=== PATIENT | female | born 1985 | race Caucasian/White ===

== ENCOUNTER 2018-09-28 12:05 | Emergency (ER) | payer OTHER ==
[~2018-09-28] VITALS: Ht 167.6 cm; Wt 77.3 kg
[~2018-09-28 12:05] MED LIST: NOCURR
[2018-09-28] MEDS ORDERED: DIPH25 PO (12:23)
[2018-09-28 14:04] VITALS: BP 128/75
[2018-09-28] MEDS: DiphenhydrAMINE HCL 25 MG CAPSULE PO ONE (14:10)
== END 2018-09-28 14:18 | disposition home or self-care (01) ==
LOC: EMS 12:06
DX: L50.9 Urticaria, unspecified (principal); L29.9 Pruritus, unspecified

== ENCOUNTER 2018-11-27 17:13 | Emergency (ER) | payer OTHER ==
[~2018-11-27] VITALS: Ht 167.6 cm; Wt 74.5 kg
[~2018-11-27 17:13] MED LIST changes: +DIPH25 PO; -NOCURR
[2018-11-27] MEDS ORDERED: HYDR-2924 PO (17:41)
[2018-11-27] MEDS ORDERED: ATOR40TA28 PO (17:41)
[2018-11-27] MEDS ORDERED: CARV12 PO (17:41)
[2018-11-27] MEDS ORDERED: FURO40 PO (17:41)
[2018-11-27] MEDS ORDERED: SODIUM CHLORIDE 0.9% 1,000 ML IV ONE (18:15)
[2018-11-27 18:22] LABS: BASOPHILS % (AUTO) 0.3 % (0.0-2.0); EOSINOPHILS % (AUTO) 0.6 % (1.0-6.0); HEMOGLOBIN 11.4 g/dL (12.0-16.0); LYMPHOCYTES # (AUTO) 2.2 K/uL (1.0-4.8); MEAN CORPUSCULAR HGB CONC 32.5 G/dL (31.0-37.0); MEAN CORPUSCULAR VOLUME 89 fL (80-100); MONOCYTES # (AUTO) 0.6 K/uL (0.1-1.0); MONOCYTES % (AUTO) 4.8 % (2.0-9.0); NEUTROPHILS # (AUTO) 8.8 K/uL (1.8-7.7); NEUTROPHILS % (AUTO) 75.3 % (40.0-70.0); PLATELET COUNT (AUTO) 283 K/uL (150-450); RED BLOOD CELL COUNT(AUTO) 3.91 MIL/uL (4.00-5.20); RED CELL DISTRIBUTION WIDTH 13.6 % (11.5-14.5)
[2018-11-27 18:33] LABS: ANION GAP 11 mmol/L (8-16); CALCIUM, TOTAL 9.5 mg/dL (8.8-10.5); CARBON DIOXIDE 26 mmol/L (22-29); CHLORIDE 103 mmol/L (98-107); CREATININE 0.77 mg/dL (0.60-1.30); GLOMERULAR FILTR. RATE CALC > 60 mL/min (>60); GLUCOSE,RANDOM 99 mg/dL (70-110); POTASSIUM 3.8 mmol/L (3.5-5.1); SODIUM SERUM 140 mmol/L (136-145); UREA NITROGEN, BLOOD 13 mg/dL (7-18)
[2018-11-27 19:00] LABS: HCG,QUANTITATIVE 1821 mIU/mL (0-6)
[2018-11-27 20:10] VITALS: BP 130/68
== END 2018-11-27 20:12 | disposition home or self-care (01) ==
LOC: EMS 17:14
DX: O03.9 Complete or unspecified spontaneous abortion without complication (principal); Z79.899 Other long term (current) drug therapy
CPT/HCPCS: 36415; 76801; 76817; 80048; 84702; 85025; 86901; 99285; J7030

== ENCOUNTER → 2020-09-28 | Emergency (ER) | payer OTHER ==
[~2020-09-28] VITALS: Ht 167.6 cm; Wt 81.8 kg
[~2020-09-28] MED LIST changes: +ATOR40TA28 PO; +CARV12 PO; -DIPH25 PO; +FURO40 PO; +HYDR-2924 PO
[2020-09-28 16:49] VITALS: BP 134/95
[2020-09-28 17:15] LABS: COVID AG,FIA SOURCE NASOPHARYNGEAL
== END | disposition home or self-care (01) ==
LOC: EMS 16:32
DX: U07.1 COVID-19 (principal); Z79.899 Other long term (current) drug therapy
CPT/HCPCS: 87426; 99283; C9803

== ENCOUNTER 2021-11-26 08:37 | Emergency (ER) | payer OTHER ==
[~2021-11-26] VITALS: Ht 167.6 cm; Wt 95.5 kg
[~2021-11-26 08:37] MED LIST changes: -HYDR-2924 PO; +HYDR50TA36 PO
[2021-11-26 09:28] LABS: BASOPHILS % (AUTO) 0.5 % (0.0-2.0); HEMATOCRIT 33.4 % (36-46); HEMOGLOBIN 11.2 g/dL (12.0-16.0); LYMPHOCYTES # (AUTO) 1.7 K/uL (1.0-4.8); LYMPHOCYTES % (AUTO) 15.4 % (22.0-44.0); MEAN CORPUSCULAR HEMOGLOBIN 28.7 pg (26.0-34.0); MEAN CORPUSCULAR HGB CONC 33.6 G/dL (31.0-37.0); MEAN CORPUSCULAR VOLUME 86 fL (80-100); MONOCYTES # (AUTO) 0.4 K/uL (0.1-1.0); MONOCYTES % (AUTO) 3.3 % (2.0-9.0); NEUTROPHILS # (AUTO) 8.8 K/uL (1.8-7.7); NEUTROPHILS % (AUTO) 79.8 % (40.0-70.0); PLATELET COUNT (AUTO) 307 K/uL (150-450); RED CELL DISTRIBUTION WIDTH 13.7 % (11.5-14.5)
[2021-11-26 09:37] LABS: ANION GAP 12 mmol/L (8-16); CARBON DIOXIDE 22 mmol/L (22-29); CHLORIDE 104 mmol/L (98-107); CREATININE 0.64 mg/dL (0.60-1.30); GLOMERULAR FILTR. RATE CALC > 60 mL/min (>60); GLUCOSE,RANDOM 114 mg/dL (70-110); POTASSIUM 3.8 mmol/L (3.5-5.1); SODIUM SERUM 138 mmol/L (136-145); UREA NITROGEN, BLOOD 6 mg/dL (7-18)
[2021-11-26 10:04] LABS: ALANINE AMINOTRANSFERASE 12 U/L (12-78); ALBUMIN 2.5 g/dL (3.4-5.0); ALKALINE PHOSPHATASE 110 U/L (46-116); ASPARTATE AMINOTRANSFERASE 11 U/L (15-37); BILIRUBIN,TOTAL 0.2 mg/dL (0.1-1.0); HCG,QUANTITATIVE 26830 mIU/mL (0-6); TOTAL PROTEIN, SERUM 7.1 g/dL (6.4-8.2)
[2021-11-26 10:25] VITALS: BP 127/65
== END 2021-11-26 10:45 | disposition home or self-care (01) ==
LOC: EMS 08:37
DX: O26.893 Other specified pregnancy related conditions, third trimester (principal); Z3A.30 30 weeks gestation of pregnancy; Z79.899 Other long term (current) drug therapy
CPT/HCPCS: 76805; 80053; 84702; 85025; 86901; 99284

== ENCOUNTER 2023-07-18 09:48 | Emergency (ER) | payer OTHER ==
[~2023-07-18] VITALS: Ht 167.6 cm; Wt 85.0 kg
[2023-07-18 09:55] VITALS: TEMP 98.3
[2023-07-18] MEDS ORDERED: IBUPROFEN 600 MG TABLET PO ONE (10:30)
[2023-07-18] MEDS ORDERED: DEXAMETHASONE SOD PHOS 4 MG/ML 5 ML VIAL IM ONE (10:30)
[2023-07-18] MEDS ORDERED: PENICILLIN G BENZATHINE LA 1,200,000 UNITS/2 ML SYRINGE IM ONE (11:00)
[2023-07-18] MEDS ORDERED: IBUP-1492 PO (11:30)
[2023-07-18 12:15] VITALS: BP 126/84; PULSE 90; RESP 16
== END 2023-07-18 12:15 | disposition home or self-care (01) ==
LOC: EMS 09:52
DX: J02.0 Streptococcal pharyngitis (principal); H92.02 Otalgia, left ear
CPT/HCPCS: 99284; 87430; 96372; J0561; J1100

== ENCOUNTER 2023-09-24 14:35 | Emergency (ER) | payer OTHER ==
[~2023-09-24] VITALS: Ht 167.6 cm; Wt 86.0 kg
[~2023-09-24 14:35] MED LIST changes: +IBUP-1492 PO
[2023-09-24 14:53] VITALS: TEMP 98.4
[2023-09-24] MEDS ORDERED: MECLIZINE HCL 25 MG TABLET PO ONE (15:15)
[2023-09-24] MEDS ORDERED: ACETAMINOPHEN 500 MG TABLET PO ONE (15:15)
[2023-09-24] MEDS ORDERED: SODIUM CHLORIDE 0.9% 1,000 ML IV ONE (15:15)
[2023-09-24] MEDS ORDERED: ONDANSETRON HCL 4 MG/2 ML VIAL IVP ONE (15:15)
[2023-09-24 15:34] LABS: BASOPHILS % (AUTO) 0.3 % (0.0-2.0); EOSINOPHILS % (AUTO) 0.5 % (1.0-6.0); HEMATOCRIT 35.2 % (36-46); HEMOGLOBIN 11.5 g/dL (12.0-16.0); LYMPHOCYTES # (AUTO) 1.6 K/uL (1.0-4.8); LYMPHOCYTES % (AUTO) 13.3 % (22.0-44.0); MEAN CORPUSCULAR HEMOGLOBIN 28.3 pg (26.0-34.0); MEAN CORPUSCULAR HGB CONC 32.8 G/dL (31.0-37.0); MEAN CORPUSCULAR VOLUME 86 fL (80-100); MONOCYTES # (AUTO) 0.7 K/uL (0.1-1.0); MONOCYTES % (AUTO) 5.8 % (2.0-9.0); NEUTROPHILS # (AUTO) 9.6 K/uL (1.8-7.7); NEUTROPHILS % (AUTO) 80.1 % (40.0-70.0); PLATELET COUNT (AUTO) 312 K/uL (150-450); RED BLOOD CELL COUNT(AUTO) 4.08 MIL/uL (4.00-5.20); RED CELL DISTRIBUTION WIDTH 14.5 % (11.5-14.5)
[2023-09-24 15:46] LABS: ANION GAP 11 mmol/L (8-16); CALCIUM, TOTAL 9.6 mg/dL (8.8-10.5); CARBON DIOXIDE 24 mmol/L (22-29); CHLORIDE 104 mmol/L (98-107); CREATININE 0.82 mg/dL (0.60-1.30); GLOMERULAR FILTR. RATE CALC > 60 mL/min (>60); GLUCOSE,RANDOM 128 mg/dL (70-110); POTASSIUM 3.8 mmol/L (3.5-5.1); SODIUM SERUM 139 mmol/L (136-145); UREA NITROGEN, BLOOD 7 mg/dL (7-18)
[2023-09-24 15:54] LABS: ALANINE AMINOTRANSFERASE 20 U/L (12-78); ALBUMIN 3.6 g/dL (3.4-5.0); ALKALINE PHOSPHATASE 100 U/L (46-116); ASPARTATE AMINOTRANSFERASE 13 U/L (15-37); BILIRUBIN,TOTAL 0.2 mg/dL (0.1-1.0); TOTAL PROTEIN, SERUM 8.4 g/dL (6.4-8.2)
[2023-09-24] MEDS ORDERED: MECL-134 PO (18:09)
[2023-09-24] MEDS ORDERED: ACET-66 PO (18:09)
[2023-09-24] MEDS ORDERED: ONDA-104 PO (18:09)
[2023-09-24 19:03] VITALS: BP 136/69; PULSE 72; RESP 16
== END 2023-09-24 19:03 | disposition home or self-care (01) ==
LOC: EMS 14:39
DX: R42 Dizziness and giddiness (principal); R55 Syncope and collapse
CPT/HCPCS: 99284; 96374; 96361; 80053; 84703; 85025; 36415; 93005; J2405; J7030

== ENCOUNTER 2024-02-15 10:32 | Emergency (ER) | payer OTHER ==
[~2024-02-15] VITALS: Ht 167.6 cm; Wt 81.8 kg
[~2024-02-15 10:32] MED LIST changes: +ACET-66 PO; +MECL-134 PO; +ONDA-104 PO
[2024-02-15 11:21] LABS: BASOPHILS % (AUTO) 0.6 % (0.0-2.0); EOSINOPHILS % (AUTO) 1.1 % (1.0-6.0); HEMATOCRIT 35.5 % (36-46); HEMOGLOBIN 11.8 g/dL (12.0-16.0); LYMPHOCYTES # (AUTO) 2.1 K/uL (1.0-4.8); MEAN CORPUSCULAR HEMOGLOBIN 28.7 pg (26.0-34.0); MEAN CORPUSCULAR HGB CONC 33.1 G/dL (31.0-37.0); MEAN CORPUSCULAR VOLUME 87 fL (80-100); MONOCYTES # (AUTO) 0.4 K/uL (0.1-1.0); MONOCYTES % (AUTO) 5.6 % (2.0-9.0); NEUTROPHILS # (AUTO) 5.1 K/uL (1.8-7.7); NEUTROPHILS % (AUTO) 65.7 % (40.0-70.0); PLATELET COUNT (AUTO) 295 K/uL (150-450); RED CELL DISTRIBUTION WIDTH 14.6 % (11.5-14.5); WHITE BLOOD COUNT (AUTO) 7.8 K/uL (4.5-11.0)
[2024-02-15 11:34] LABS: PROTHROMBIN TIME 10.5 SEC (9.4-11.6)
[2024-02-15 11:38] LABS: ANION GAP 13 mmol/L (8-16); CALCIUM, TOTAL 8.8 mg/dL (8.8-10.5); CARBON DIOXIDE 23 mmol/L (22-29); CHLORIDE 106 mmol/L (98-107); CREATININE 0.78 mg/dL (0.60-1.30); GLOMERULAR FILTR. RATE CALC > 60 mL/min (>60); GLUCOSE,RANDOM 118 mg/dL (70-110); POTASSIUM 3.5 mmol/L (3.5-5.1); SODIUM SERUM 142 mmol/L (136-145); UREA NITROGEN, BLOOD 8 mg/dL (7-18)
[2024-02-15 11:39] LABS: TROPONIN I-HIGH SENSITIVITY Less Than 4 ng/L (<51)
[2024-02-15 11:41] LABS: APPEARANCE,URINE CLEAR (CLEAR); B-TYPE NATRIURETIC PEPTIDE 10 pg/mL (0-100); BILIRUBIN,URINE NEGATIVE (NEGATIVE); COLOR,URINE YELLOW (YELLOW); GLUCOSE, URINE (UA) NEGATIVE (NEGATIVE); KETONES,URINE NEGATIVE (NEGATIVE); LEUKOCYTE ESTERASE ,URINE NEGATIVE (NEGATIVE); NITRATE,URINE NEGATIVE (NEGATIVE); OCCULT BLOOD,URINE NEGATIVE (NEGATIVE); PH,URINE 5.5 (5.0-8.0); PROTEIN,URINE TRACE mg/dL (NEGATIVE); SPECIFIC GRAVITIY, URINE 1.026 (1.003-1.030); UROBILINOGEN,URINE <=1.0 mg/dL (<=1.0)
[2024-02-15 11:43] LABS: ALANINE AMINOTRANSFERASE 20 U/L (12-78); ALBUMIN 3.2 g/dL (3.4-5.0); ALKALINE PHOSPHATASE 89 U/L (46-116); ASPARTATE AMINOTRANSFERASE 12 U/L (15-37); BILIRUBIN,TOTAL 0.4 mg/dL (0.1-1.0); CREATINE KINASE, TOTAL ONLY 44 U/L (26-192); TOTAL PROTEIN, SERUM 7.7 g/dL (6.4-8.2)
[2024-02-15 13:28] VITALS: BP 123/44; PULSE 68; RESP 18; TEMP 98.3
== END 2024-02-15 13:36 | disposition home or self-care (01) ==
LOC: EMS 10:47
DX: R07.89 Other chest pain (principal)
CPT/HCPCS: 71045; 80053; 81003; 82550; 83880; 84484; 85025; 85610; 85730; 93005; 99285; 36415-L1; 36415-TC